=== PATIENT | female | born 1995 | race Caucasian/White ===

== ENCOUNTER 2022-02-08 14:02 | Emergency (ER) | payer OTHER ==
[~2022-02-08] VITALS: Ht 162.6 cm; Wt 65.8 kg
--- NOTE | 2022-02-08 14:14 | NUR ---
The patient bibs becmanuelse she took Nyquil about 2 days; now feeling drowsy, she thinks she is having allerguc reaction to the drug. The patient is in room air and denies SOB. Respiration regular and unlabored. Will continue to monitor the patient.
--- NOTE | 2022-02-08 14:16 | NUR ---
Note marquis in EDM - 02/08/22 at 1627 by BRAD The patient is presented to ER because she took Nyquil about 2 days; now feeling drowsy, she thinks she is having allerguc reaction to the drug. In room air and denies SOB. Respiration regular and unlabored. Will continue to monitor the patient.
[2022-02-08] MEDS ORDERED: MECLIZINE HCL 12.5 MG TABLET PO ONE (15:00)
[2022-02-08] MEDS ORDERED: MECLIZINE HCL 25 MG TABLET ONE (15:07)
[2022-02-08] MEDS ORDERED: METO-295 PO (16:16)
[2022-02-08] MEDS ORDERED: MECL-159 PO (16:16)
[2022-02-08 16:28] VITALS: BP 129/75
--- NOTE | 2022-02-08 16:28 | NUR ---
Patient discharged to home in stable condition. Written and verbal after care instructions given. Patient verbalizes understanding of instruction.
== END 2022-02-08 16:28 | disposition home or self-care (01) ==
LOC: ER 14:10
DX: R42 Dizziness and giddiness (principal); Z79.899 Other long term (current) drug therapy
CPT/HCPCS: 70450; 99284; J8597